=== PATIENT | male | born 1990 | race Caucasian/White ===

== ENCOUNTER 2018-10-26 21:36 | Emergency (ER) | payer BC, OTHER ==
[~2018-10-26] VITALS: Ht 185.4 cm; Wt 112.5 kg
--- OUTSIDE RECORDS SUMMARY | 2018-10-26 21:42 | XMS REPORT | CCD ---
Author DINORA Vega Unknown Address [address] [place], [place] [id number] Care Team Providers Care Residence Counselor Name Role Phone JASBIR LAGUNA DO Attphys LAGUNAJASBIR DO Prisurg Vital Signs Unknown or Not Available. Allergies Unknown or Not Available. Procedures Unknown or Not Available. History of Immunizations Immunization Code Date DTP 1990 DTP 03/13/1991 DTP 06/03/1991 DTP 04/19/1992 OPV 1990 OPV 03/13/1991 OPV 04/19/1992 OPV 02 10/08/1996 MMR 12/16/1991 MMR 03 12/15/1992 MMR 03 10/08/1996 Hep B, adolescent or pediatric 08 03/02/1997 Hep B, adolescent or pediatric 08 05/07/1997 Td (adult), adsorbed 09 05/29/2006 influenza, split (incl. purified surface antigen) 15 02/01/2007 DTaP 20 10/08/1996 Hib (HbOC) 47 1990 Hib (HbOC) 47 03/13/1991 Hib (HbOC) 47 06/03/1991 Hib (HbOC) 47 12/16/1991 Hep A, ped/adol, 2 dose 83 08/22/2006 meningococcal MCV4P 114 08/22/2006 Problems Unknown or Not Available. Results Unknown or Not Available. Active Medications Unknown or Not Available. Medications Administered During Visit Unknown or Not Available. Encounters Encounter Diagnosis Diagnosis Code Start Date Sprain of ankle [id number] 10/07/2015 Social History Smoking Status Code Start Date End Date Never smoker [id number] Patient Decision Aids Unknown or Not Available. Discharge Instructions You were admitted to [facility] on 10/07/2015 16:50 with a principal diagnosis of Sprain of unspecified ligament of right ankle, initial encounter You were discharged from [facility] on 10/07/2015 17:51 Should you have any questions prior to discharge, please contact a member of your healthcare team. If you have left the hospital and have any questions, please contact your primary care physician. Chief Complaint and Reason For Visit Chief Complaint Date of Onset ANKLE INJURY Function Status Unknown or Not Available. Plan of Care Unknown or Not Available. Referral/Transition of Care Unknown or Not Available.
--- OUTSIDE RECORDS SUMMARY | 2018-10-26 21:42 | XMS REPORT | Clinical Summary ---
Author Author Admin, [facility] Organization [facility] Address Unknown Phone Unavailable Allergies, Adverse Reactions, Alerts Allergy Name Reaction Description Start Date Severity Status Provider No Known Allergies Effie Yanes LPN Conditions or Problems Problem Name Problem Code Onset Date Status Entry Date Provider Comment Standard Description Annotate Pre-employment exam V70.5 Active Effie Yanes LPN Health examination of defined subpopulations HEALTH EXAMINATION OF DEFINED SUBPOPULATION V70.5 Active Koby Wooten MD Health examination of defined subpopulations Medication List Medication Instructions Start Date Stop Date Generic Name NDC Status Provider Patient Instruction No Drug Therapy Prescribed - none known did ask Effie Yanes LPN Vital Signs Date Name Value Unit Range Description blood pressure, diastolic - 8462-4 78 mm[Hg] BP kahn blood pressure, systolic - 8480-6 139 mm[Hg] BP sys height E&M - 8302-2 75 [in_us] Bdy height pulse rate E&M - 8867-4 70 /min Heart rate temperature E&M 98.9 [degF] Body temperature weight E&M - 3141-9 237 [lb_av] Weight Measured Encounters Code Encounter Date Provider Facility [id number] Employment/ICC Exam 13:45:07 CDT Koby Wooten MD [facility]
--- OUTSIDE RECORDS SUMMARY | 2018-10-26 21:42 | XMS REPORT | Clinical Summary ---
Author Author Admin, [facility] Organization [facility] Address Unknown Phone Unavailable Allergies, Adverse Reactions, [...] Measured Encounters Code Encounter Date Provider Facility [id number] Employment/ICC Exam 13:45:07 CDT Koby Wooten MD [facility]
--- OUTSIDE RECORDS SUMMARY | 2018-10-26 21:42 | XMS REPORT | Clinical Summary ---
Author Author Admin, [facility] Organization [facility] Address Unknown Phone Unavailable Allergies, Adverse Reactions, [...] Measured Encounters Code Encounter Date Provider Facility [id number] Employment/ICC Exam 13:45:07 CDT Koby Wooten MD [facility]
--- OUTSIDE RECORDS SUMMARY | 2018-10-26 21:42 | XMS REPORT | Clinical Summary ---
Author Author Admin, [facility] Organization [facility] Address Unknown Phone Unavailable Allergies, Adverse Reactions, [...] Measured Encounters Code Encounter Date Provider Facility [id number] Employment/ICC Exam 13:45:07 CDT Koby Wooten MD [facility]
--- OUTSIDE RECORDS SUMMARY | 2018-10-26 21:42 | XMS REPORT | Clinical Summary ---
Author Author Admin, [facility] Organization [facility] Address Unknown Phone Unavailable Allergies, Adverse Reactions, Alerts Allergy Name Reaction Description Start Date Severity Status Provider Allergies Unknown Conditions or Problems Problem Name Problem Code Onset Date Status Entry Date Provider Comment Standard Description Annotate Pre-employment exam V70.5 Active Effie Yanes LPN Health examination of defined subpopulations Medication List Medication Instructions Start Date Stop Date Generic Name NDC Status Provider Patient Instruction Drug Treatment Unknown - unknown
--- OUTSIDE RECORDS SUMMARY | 2018-10-26 21:42 | XMS REPORT | Clinical Summary ---
Author Author Admin, [facility] Organization [facility] Address Unknown Phone Unavailable Allergies, Adverse Reactions, [...] Measured Encounters Code Encounter Date Provider Facility [id number] Employment/ICC Exam 13:45:07 CDT Koby Wooten MD [facility]
--- OUTSIDE RECORDS SUMMARY | 2018-10-26 21:42 | XMS REPORT | Clinical Summary ---
Author Author Admin, [facility] Organization [facility] Address Unknown Phone Unavailable Allergies, Adverse Reactions, [...] Measured Encounters Code Encounter Date Provider Facility [id number] Employment/ICC Exam 13:45:07 CDT Koby Wooten MD [facility]
[2018-10-26] MEDS: NITROGLYCERIN 0.4 MG SL TABS BTL 25'S SL PRN ×3 (21:57→22:08)
--- NOTE | 2018-10-26 21:59 | ED Chest Pain ---
General Chief Complaint: Chest Wall Stated Complaint: CHEST PAIN,SOB Source: patient, spouse Exam Limitations: no limitations History of Present Illness Date Seen by Provider: Oct 26, 2018 Time Seen by Provider: 21:42 Initial Comments Patient presents to ER by private conveyance with chief complaint of chest wall pain starting about 10:00 last night 24 hours ago. He says been fairly constant and he really doesn't notice it except when he sitting still but he says it's always there. He describes a sharp substernal nonradiating but he does sometimes get a little numbness in his left arm. He's been having this intermittent pain for the past week or so so he [facility] and they ran an EKG, chest x-ray and labs. They ran a a 24-hour Holter monitor and he turned it in this afternoon but he has not heard any results yet. He does not routinely follow with a doctor but he does take an antidepressant start with an a. He denies any nausea but he does have occasional shortness of breath. He smokes about half pack cigarettes per day and one can of chew every 3 days. Drinks oc casional alcohol but denies any recreational drug use. His dad had a stroke in his 50s but no coronary disease. He denies a history of high blood pressure cholesterol or diabetes. He admits to taking some Aleve earlier this morning but he said it did not help chest pain. Allergies and Home Medications Allergies Coded Allergies: No Known Drug Allergies (Unverified , 10/26/18) Patient Home Medication List Home Medication List Reviewed: Yes Review of Systems Review of Systems Constitutional: No chills, No fever, No malaise EENTM: No Blurred Vision, No Double Vision, No Eye Tearing Respiratory: Cough, Shortness of Air; Denies Wheezing Cardiovascular: See HPI, Chest Pain; Denies Edema, Denies Irregular Heart Rate, Denies Lightheadedness, Denies Syncope Gastrointestinal: Denies Abdomen Distended, Denies Abdominal Pain, Denies Constipated, Denies Diarrhea, Denies Nausea Genitourinary: Denies Burning, Denies Discharge Musculoskeletal: No back pain, No joint pain Skin: No pruritus, No rash Past Vezkjyi-Wszwbv-Wymlgu Hx Patient Social History Alcohol Use: Occasionally Uses Recreational Drug Use: No Smoking Status: Current Everyday Smoker Type Used: Cigarettes, Smokeless Tobacco 2nd Hand Smoke Exposure: Yes Recent Foreign Travel: No Contact w/Someone Who Travel: No Recent Hopitalizations: No Physical Abuse: No Sexual Abuse: No Mistreated: No Fear: No Immunizations Up To Date Tetanus Booster (TDap): Unknown Seasonal Allergies Seasonal Allergies: No Past Medical History Surgeries: No Respiratory: No Cardiac: No Neurological: No Genitourinary: No Gastrointestinal: No Musculoskeletal: No Endocrine: No HEENT: No Cancer: No Psychosocial: Yes Depression Integumentary: No Blood Disorders: No Physical Exam Vital Signs Vital Signs - First Documented Capillary Refill : Less Than 3 Seconds Height, Weight, BMI Height: '" Weight: lbs. oz. kg; BMI Method: General Appearance: No Apparent Distress, WD/WN HEENT: PERRL/EOMI, Pharynx Normal, Moist Mucous Membranes Neck: Full Range of Motion, Normal Inspection Respiratory: No Chest Non Tender; Lungs Clear, Normal Breath Sounds, No Accessory Muscle Use, No Respiratory Distress, Other (anterior chest wall pain is reproducible by direct palpation) Cardiovascular: Regular Rate, Rhythm, No Edema, No Gallop, No JVD, No Murmur, Normal Peripheral Pulses Gastrointestinal: Normal Bowel Sounds, Non Tender, Soft Extremity: Normal Capillary Refill, Normal Inspection, No Pedal Edema Neurologic/Psychiatric: Alert, Oriented x3 Skin: Normal Color, Warm/Dry Progress/Results/Core Measures Results/Orders Lab Results Laboratory Tests Test 10/26/18 21:47 Range/Units White Blood Count 10.9 4.3-11.0 10^3/uL Red Blood Count 5.48 4.35-5.85 10^6/uL Hemoglobin 16.2 13.3-17.7 G/DL Hematocrit 48 40-54 % Mean Corpuscular Volume 88 80-99 FL Mean Corpuscular Hemoglobin 30 25-34 PG Mean Corpuscular Hemoglobin Concent 34 32-36 G/DL Red Cell Distribution Width 12.9 10.0-14.5 % Platelet Count 295 130-400 10^3/uL Mean Platelet Volume 10.5 H 7.4-10.4 FL Neutrophils (%) (Auto) 68 42-75 % Lymphocytes (%) (Auto) 24 12-44 % Monocytes (%) (Auto) 6 0-12 % Eosinophils (%) (Auto) 2 0-10 % Basophils (%) (Auto) 0 0-10 % Neutrophils # (Auto) 7.3 1.8-7.8 X 10^3 Lymphocytes # (Auto) 2.6 1.0-4.0 X 10^3 Monocytes # (Auto) 0.6 0.0-1.0 X 10^3 Eosinophils # (Auto) 0.2 0.0-0.3 10^3/uL Basophils # (Auto) 0.0 0.0-0.1 10^3/uL Prothrombin Time 12.9 12.2-14.7 SEC INR Comment 0.9 0.8-1.4 Activated Partial Thromboplast Time 29 24-35 SEC Sodium Level 138 135-145 MMOL/L Potassium Level 4.1 3.6-5.0 MMOL/L Chloride Level 102 98-107 MMOL/L Carbon Dioxide Level 22 21-32 MMOL/L Anion Gap 14 5-14 MMOL/L Blood Urea Nitrogen 13 7-18 MG/DL Creatinine 1.15 0.60-1.30 MG/DL Estimat Glomerular Filtration Rate > 60 BUN/Creatinine Ratio 11 Glucose Level 87 70-105 MG/DL Calcium Level 10.2 H 8.5-10.1 MG/DL Corrected Calcium 8.5-10.1 MG/DL Magnesium Level 2.1 1.8-2.4 MG/DL Total Bilirubin 0.7 0.1-1.0 MG/DL Aspartate Amino Transf (AST/SGOT) 20 5-34 U/L Alanine Aminotransferase (ALT/SGPT) 30 0-55 U/L Alkaline Phosphatase 59 40-136 U/L Myoglobin 72.9 10.0-92.0 NG/ML Troponin I < 0.028 <0.028 NG/ML B-Type Natriuretic Peptide < 10.0 <100.0 PG/ML Total Protein 8.2 6.4-8.2 GM/DL Albumin 5.0 H 3.2-4.5 GM/DL Lipase 16 8-78 U/L My Orders Orders - MJ ARMAS Cbc With Automated Diff (10/26/18 21:50) Magnesium (10/26/18 21:50) Ekg Tracing (10/26/18 21:50) Cardiac Profile 1 (10/26/18 21:50) Comprehensive Metabolic Panel (10/26/18 21:50) Myoglobin Serum (10/26/18 21:50) Protime With Inr (10/26/18 21:50) Partial Thromboplastin Time (10/26/18 21:50) O2 (10/26/18 21:50) Monitor-Rhythm Ecg Trace Only (10/26/18 21:50) Lipid Panel (10/27/18 06:00) Ed Iv/Invasive Line Start (10/26/18 21:50) Lipase (10/26/18 21:50) BNP (10/26/18 21:50) Nitroglycerin 0.4 Mg Btl 25's (Nitrostat (10/26/18 22:00) Aspirin Chewable Tablet (Baby Aspirin Ch (10/26/18 22:00) Chest Pa/Lat (2 View) (10/26/18 21:50) Ketorolac Injection (Toradol Injection) (10/26/18 22:30) Medications Given in ED Current Medications Medications Dose Ordered Sig/Petrona Route Start Time Stop Time Status Last Admin Dose Admin Aspirin 324 mg ONCE ONCE PO 10/26/18 22:00 10/26/18 22:01 DC 10/26/18 21:57 324 MG Ketorolac Tromethamine 30 mg ONCE ONCE IVP 10/26/18 22:30 10/26/18 22:31 DC 10/26/18 22:30 30 MG Nitroglycerin 0.4 mg UD PRN SL 10/26/18 22:00 10/26/18 22:08 DC 10/26/18 22:08 0.4 MG Vital Signs/I&O 10/26/18 10/26/18 21:40 21:40 Temp 98.7 Pulse 66 Resp 18 B/P (MAP) 156/93 (114) Pulse Ox 100 100 O2 Delivery Room Air Room Air Progress Progress Note #1: Time: 21:57 Progress Note Suspect chest wall pain versus myocarditis/pericarditis. Coronary disease is on the differential however less likely. We'll start with aspirin and try nitroglycerin first. EKG is reassuring. Two-view chest x-ray to better assess the lungs. No auscultated wheezes. If his troponin initially is negative is been 24 hours since this episode of pain started he will not likely need a delta troponin. His heart score would then be 1 point and he can follow up outpatient. Progress Note #2: Time: 22:49 Progress Note Toradol. Still there so we'll put him on some steroids as well. Encourage him to cloth picker an antacid. He already has outpatient follow-up with Dr Ro, cardiology in [place] set up by his primary care provider. Initial ECG Impression Date: Oct 26, 2018 Initial ECG Impression Time: 21:40 Initial ECG Rate: 64 Initial ECG Rhythm: Normal Sinus Initial ECG Intervals: Normal Initial ECG Impression: Normal Initial ECG Comparisson: No Previous ECG Available Comment No clinically significant as so elevation or depression Diagnostic Imaging Diagonstic Imaging: Xray Plain Films/CT/US/NM/MRI: chest (2v) Comments No acute cardiopulmonary processes noted. Two-view chest x-ray. Reviewed: Reviewed by Me Departure Impression Primary Impression: Costochondritis, acute Disposition: 01 HOME, SELF-CARE Condition: Stable Departure-Patient Inst. Decision time for Depature: 22:50 Referrals: NO,LOCAL PHYSICIAN (PCP/Family) Primary Care Physician Patient Instructions: Costochondritis (DC) Add. 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 set up mechanic stamping machines the prednisone and take 2 tablets twice a day for the next 5 days. You may consider picking up some omeprazole or Prilosec if you have acid reflux. Keep your follow-up appointments as scheduled. If you have intractable chest pain, shortness of breath or other worrisome symptoms please return to the nearest ER to be reexamined. All discharge instructions reviewed with patient and/or family. Voiced understanding. Scripts Prednisone (Prednisone) 20 Mg Tab 40 MG PO BID for 5 Days, #20 TAB 0 Refills Prov: MJ ARMAS 10/26/18 Naproxen (Naprosyn) 500 Mg Tablet 500 MG PO BID for 14 Days, #30 TAB 0 Refills Prov: MJ ARMAS 10/26/18 MJ ARMAS Oct 26, 2018 21:59
[2018-10-26] MEDS ORDERED: ASPIRIN 81 MG CHEW (CHILDREN'S ASA) PO ONE (22:00)
[2018-10-26 22:04] LABS: BASOPHILS % (AUTO) 0 % (0-10); EOSINOPHILS # (AUTO) 0.2 10^3/uL (0.0-0.3); EOSINOPHILS % (AUTO) 2 % (0-10); HEMATOCRIT 48 % (40-54); HEMOGLOBIN 16.2 G/DL (13.3-17.7); LYMPHOCYTES # (AUTO) 2.6 X 10^3 (1.0-4.0); LYMPHOCYTES % (AUTO) 24 % (12-44); MEAN CORPUSCULAR HEMOGLOBIN 30 PG (25-34); MEAN CORPUSCULAR HGB CONC 34 G/DL (32-36); MEAN CORPUSCULAR VOLUME 88 FL (80-99); MEAN PLATELET VOLUME 10.5 FL (7.4-10.4); MONOCYTES # (AUTO) 0.6 X 10^3 (0.0-1.0); MONOCYTES % (AUTO) 6 % (0-12); NEUTROPHILS # (AUTO) 7.3 X 10^3 (1.8-7.8); NEUTROPHILS % (AUTO) 68 % (42-75); PLATELET COUNT 295 10^3/uL (130-400); RED CELL DISTRIBUTION WIDTH 12.9 % (10.0-14.5); WHITE BLOOD COUNT 10.9 10^3/uL (4.3-11.0)
[2018-10-26 22:17] LABS: INR 0.9 (0.8-1.4); PROTHROMBIN TIME PATIENT 12.9 SEC (12.2-14.7)
[2018-10-26 22:22] LABS: ALANINE AMINOTRANSFERASE 30 U/L (0-55); ALKALINE PHOSPHATASE 59 U/L (40-136); BILIRUBIN,TOTAL 0.7 MG/DL (0.1-1.0); BUN/CREATININE RATIO 11; CALCIUM 10.2 MG/DL (8.5-10.1); CARBON DIOXIDE 22 MMOL/L (21-32); CHLORIDE 102 MMOL/L (98-107); CREATININE SERUM 1.15 MG/DL (0.60-1.30); GFR ESTIMATED > 60; GLUCOSE 87 MG/DL (70-105); LIPASE 16 U/L (8-78); MAGNESIUM 2.1 MG/DL (1.8-2.4); POTASSIUM 4.1 MMOL/L (3.6-5.0); SODIUM 138 MMOL/L (135-145); TOTAL PROTEIN 8.2 GM/DL (6.4-8.2)
[2018-10-26] MEDS ORDERED: KETOROLAC 30 MG/ML VIAL IVP ONE (22:30)
--- NOTE | 2018-10-26 22:30 | NUR ---
PT ALERT GCS 15. PAIN RATING 6 TO CHEST. NO ACUTE SIGHNS OF DYSPNEA NOTED. PT RELATES PAIN INCREASES WITH MOVING HIS HEAD BACK AND BREATHING. TELE SHOWS SR 76.BP MACHINE IS 108/74 AUSC HR 72 REG AUSC RESP 16 NORMAL RECHECK TEMP IS 98.4 P OX R/A IS 96.
[2018-10-26] MEDS ORDERED: NAPR-1071 PO (22:51)
[2018-10-26] MEDS ORDERED: PRD20T PO (22:51)
[2018-10-26 23:01] VITALS: BP 117/63
--- NOTE | 2018-10-27 05:52 | Diagnostic Imaging Report ---
Examination: Chest, PA and lateral views Indication: Chest pain. Comparison: None available. Findings: Lungs are clear and the pulmonary vasculature is normal. No pneumothorax or pleural effusion. The cardiomediastinal silhouette is normal. No acute osseous abnormality is appreciated. Impression: No radiographic evidence of acute chest disease. Dictated by: Dictated on workstation # [id number]
== END 2018-10-26 23:01 | disposition home or self-care (01) ==
LOC: ER 21:38
DX: M94.0 Chondrocostal junction syndrome [Tietze] (principal); F32.9 Major depressive disorder, single episode, unspecified; F17.210 Nicotine dependence, cigarettes, uncomplicated
CPT/HCPCS: 36415; 71046; 80053; 83690; 83735; 83874; 83880; 84484; 85025; 85610; 85730; 93005; 93041